=== PATIENT | female | born 1965 | race Caucasian/White ===

== ENCOUNTER 2017-08-04 14:34 | Emergency (ER) | payer OTHER ==
[2017-08-04 14:45] VITALS: RESP 18
--- NOTE | 2017-08-04 15:10 | EDPHY ---
H & P Stated Complaint: Wheezing during exercise this morning;wants to get checked out Time Seen by Provider: 08/04/17 15:10 - Personal History LMP (Females 10-55): Post Menopausal Current Tetanus Diphtheria and Acellular Pertussis (TDAP): Yes - Medical/Surgical History Other PMH: anxiety,depression. endometriosis - Social History Smoking Status: Current every day smoker Constitutional: Initial Vital Signs Temperature (C) 37.1 C 08/04/17 14:40 Heart Rate 88 08/04/17 14:40 Respiratory Rate 18 08/04/17 14:40 Blood Pressure 140/92 H 08/04/17 14:40 O2 Sat (%) 97 08/04/17 14:40 O2 Delivery Mode Room Air Allergies/Adverse Reactions: No Known Allergies Allergy (Verified 08/04/17 14:42) Home Medications: Medication Instructions Recorded NK [No Known Home Meds] 08/04/17 Medical Decision Making - Diagnostics Imaging: I viewed and interpreted images myself ED Course/Re-evaluation: CHIEF COMPLAINT: Wheezing HISTORY OF PRESENT ILLNESS: The patient is a 51 y/o female arriving for evaluation of wheezing while dancing today. She has no history of respiratory disease, cardiac disease, or similar symptoms previously. She did not have an irregular heart rate during this and used her veterinary stethoscope to auscultate her lungs and heard nothing abnormal. She denies chest pain or palpitations. She feels like the sensation is still present, though mild. She denies aspiration, cough, fever, chills, chest pain, rash, or any recent infectious symptoms. She has no history of blood clots and denies recent travel or surgery. She has mild triglyceridemia. REVIEW OF SYSTEMS: A 10 point review of systems was performed and is negative with the exception of the elements mentioned in the history of present illness. PHYSICAL EXAM: HR, BP, O2 Sat, RR. Temp noted General Appearance: Alert, well hydrated, appropriate, and non-toxic appearing. Head: Atraumatic without scalp tenderness or obvious injury Eyes: Pupils equal, round, reactive to light and accommodation, EOMI, no trauma , no injection. Nose: Atraumatic, no rhinorrhea, clear. Throat: Mucus membranes moist. Neck: Supple, nontender, no lymphadenopathy. Respiratory: No retractions, no distress, no wheezes, and no accessory muscle use. Lungs are clear to auscultation bilaterally. Cardiovascular: Regular rate and rhythm, no murmurs, rubs, or gallops. Good capillary refill all extremities. Gastrointestinal: Abdomen is soft, nontender, non-distended, no masses, no rebound, no guarding, no peritoneal signs. Musculoskeletal: Normal active ROM of all extremities, atraumatic. Neurological: Alert, appropriate, and interactive. The patient has non-focal cranial nerves, motor, sensory, and cerebellar exam. Skin: No rashes, good turgor, no nodules on palpation. 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 PCP: Dr. Melvin DIAGNOSTICS/PROCEDURES/CRITICAL CARE TIME: Chest x-ray: negative DIFFERENTIAL DIAGNOSIS: The differential diagnosis for the patient's shortness of breath and hypoxemia included but was not limited to pneumonia, myocardial infarction, acute mountain sickness, high altitude pulmonary edema, congestive heart failure, and pulmonary embolus. MEDICAL DECISION MAKING: This is a normally healthy 51 y/o female complaining of wheezing onset while in dance class this morning that has persisted mildly through the day. She is well- appearing on exam with normal breath sounds. She is afebrile. Plan for chest x- ray and duo neb. We will not perform a d-dimer here as she has no tachypnea, tachycardia, or other risk factors for PE. 1630: Reassessed patient and discussed work up. Her x-ray is normal. She feels completely back to normal after the duo neb. I've offered an inhaler, which she has declined. She will follow up with her PCP as needed. Return precautions discussed. She is comfortable with plan for follow up. - Data Points Medications Given: Discontinued Medications Albuterol/Ipratropium (Duoneb) 3 ml IH EDNOW ONE Stop: 08/04/17 15:31 Last Admin: 08/04/17 15:32 Dose: 3 ml Departure - Departure Disposition: Home, Routine, Self-Care Clinical Impression: Dyspnea Qualifiers: Dyspnea type: dyspnea on exertion Qualified Code(s): R06.09 - Other forms of dyspnea Reactive airway disease Qualifiers: Asthma severity: mild Asthma persistence: unspecified Qualified Code(s): J45.909 - Unspecified asthma, uncomplicated Condition: Good Instructions: Reactive Airways Disease (ED), Dyspnea (ED), Albuterol (By breathing) Additional Instructions: 1. Follow up with your primary care provider for further evaluation of possibly reactive airways disease that could be exercise-induced. You may be more comfortable with an albuterol inhaler. 2. Return to the ED for any worsening of condition. Referrals: Oswald Melvin MD [Primary Care Provider] - As per Instructions Report Scribed for: Gilson Yao Report Scribed by: Mercy Suarez Date of Report: 08/04/17 Time of Report: 15:31
[2017-08-04] MEDS ORDERED: IPRATROPIUM/ALBUTEROL 3 ML DEYVIAL IH ONE (15:30)
[2017-08-04 17:00] VITALS: BP 132/74; PULSE 74; TEMP 98.2; O2SAT 98
== END 2017-08-04 16:59 | disposition home or self-care (01) ==
DX: J45.909 Unspecified asthma, uncomplicated (principal); F17.200 Nicotine dependence, unspecified, uncomplicated

== ENCOUNTER 2018-01-20 11:05 | Emergency (ER) | payer OTHER ==
--- NOTE | 2018-01-20 11:24 | EDPHY ---
H & P Stated Complaint: numbness and atrophy left hand Time Seen by Provider: 01/20/18 11:23 - Personal History Current Tetanus/Diphtheria Vaccine: Yes Current Tetanus Diphtheria and Acellular Pertussis (TDAP): Yes Tetanus Vaccine Date: < 10 years - Medical/Surgical History Hx Asthma: No Hx Chronic Respiratory Disease: No Hx Diabetes: No Hx Cardiac Disease: No Hx Renal Disease: No Hx Cirrhosis: No Hx Alcoholism: No Hx HIV/AIDS: No Hx Splenectomy or Spleen Trauma: No Other PMH: anxiety,depression. endometriosis - Social History Smoking Status: Current every day smoker Constitutional: Initial Vital Signs Temperature (C) 36.6 C 01/20/18 11:08 Heart Rate 67 01/20/18 11:08 Respiratory Rate 20 01/20/18 11:08 Blood Pressure 158/99 H 01/20/18 11:08 O2 Sat (%) 98 01/20/18 11:08 O2 Delivery Mode Room Air Allergies/Adverse Reactions: No Known Allergies Allergy (Verified 01/20/18 11:07) Home Medications: Medication Instructions Recorded Effexor Xr 01/20/18 Medical Decision Making - Diagnostics Imaging: Discussed imaging studies w/ sheet sorter Radiologist, I viewed and interpreted images myself ED Course/Re-evaluation: CHIEF COMPLAINT: HISTORY OF PRESENT ILLNESS: The patient is a 52 y/o female with a history of anxiety complaining of left hand numbness for the last few days. She broke her left wrist twice in childhood and over the last 10 years she has had occasional numbness in her left little finger and pain with supination of her left wrist, but she has never been evaluated for this. Three days ago she developed persistent numbness extending from the palmar aspect of her left wrist down her hand into her little finger and part of her 4th finger. This has affected her ability to type. She treated this with acupuncture twice without improvement. She saw her PCP last week and was referred to Dr. Mcfarland, hand surgery, for evaluation. Over the last 24 hours she's noticed what she describes as atrophy along the left 5th metacarpal on the palmar and dorsal aspect of her hand. She is still able to move her hand. No systemic symptoms. REVIEW OF SYSTEMS: A 10 point review of systems was performed and is negative with the exception of the elements mentioned in the history of present illness. PHYSICAL EXAM: HR, BP, O2 Sat, RR. Temp noted General Appearance: Alert, well hydrated, appropriate, and non-toxic appearing. Head: Atraumatic without scalp tenderness or obvious injury Eyes: Pupils equal, round, reactive to light and accommodation, EOMI, no trauma , no injection. Throat: Mucus membranes moist. Neck: Supple Respiratory: No distress. Cardiovascular: Left radial pulse intact. Good capillary refill all extremities. Musculoskeletal: Left hand: lumbrical and intraosseous atrophy along little finger metacarpal on palmar and dorsal aspects. Pain with ROM of left wrist. Otherwise normal active ROM of all extremities, atraumatic. Neurological: Alert, appropriate, and interactive. Numbness in ulnar nerve distribution of left hand extending from site of prior injury at the ulnar tunnel to finger tip, otherwise nonfocal. Skin: No rashes, good turgor, no nodules on palpation. 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 Right-handed. PCP: Dr. Melvin. DIAGNOSTICS/PROCEDURES/CRITICAL CARE TIME: Left wrist MRI: TFCC tear DIFFERENTIAL DIAGNOSIS: The differential diagnosis for the patient's neurologic deficits included but was not ulnar tunnel impingement, left wrist injury, limited to peripheral causes, central causes including CVA, TIA, electrolyte abnormalities and dehydration, cardiogenic causes, atypical causes like migraine syndrome. MEDICAL DECISION MAKING: This is a 52 y/o female with anxiety and remote left wrist injury who presents with a few days of left little finger paresthesia and atrophy along the 5th metacarpal. Numbness in the median nerve distribution could indicate ulnar tunnel impingement related to this old wrist injury. Plan for wrist MRI for better evaluation of this. MRI shows TFCC tear. She has an appointment scheduled with a hand specialist in 3 days and a splint available at home. She will be discharged with instructions to follow up with ortho as planned. Return precautions discussed. She is comfortable with this plan. Departure - Departure Disposition: Home, Routine, Self-Care Clinical Impression: TFCC (triangular fibrocartilage complex) tear Qualifiers: Encounter type: initial encounter Laterality: left Qualified Code(s): S63.592A - Other specified sprain of left wrist, initial encounter Condition: Good Instructions: Wrist Injury (ED) Additional Instructions: 1. Wear splint for comfort. 2. Follow up with Dr. Mcfarland this week as planned without fail. 3. Return to the ED for worsening of condition. Referrals: Oswald Melvin MD [Primary Care Provider] - As per Instructions Saravanan Mcfarland MD [Medical Doctor] - As per Instructions Report Scribed for: Gilson Yao Report Scribed by: Mercy Suarez Date of Report: 01/20/18 Time of Report: 11:47
[2018-01-20 15:14] VITALS: BP 149/87; PULSE 65; RESP 18; TEMP 98.6; O2SAT 95
== END 2018-01-20 15:14 | disposition home or self-care (01) ==
DX: S63.592A Other specified sprain of left wrist, initial encounter (principal); F17.200 Nicotine dependence, unspecified, uncomplicated; X58.XXXA Exposure to other specified factors, initial encounter

== ENCOUNTER → 2018-10-11 | Outpatient (CLI) | payer OTHER | LOC: FIMAGING 13:52 | PROVIDERS: ATTEND Internal Medicine | DX: M79.601 Pain in right arm (principal) ==

== ENCOUNTER → 2019-02-14 | Outpatient (CLI) | payer OTHER | LOC: FIMAGING 10:16 | PROVIDERS: ATTEND Physician Assistant | DX: M25.561 Pain in right knee (principal); S52.001D Unspecified fracture of upper end of right ulna, subsequent encounter for closed fracture with routine healing; Z87.81 Personal history of (healed) traumatic fracture ==

== ENCOUNTER → 2019-02-17 | Outpatient (CLI) | payer OTHER | LOC: FIMAGING 12:11 | PROVIDERS: ATTEND Physical Medicine & Rehabilitation | DX: Z98.1 Arthrodesis status (principal) ==